=== PATIENT | male | born 1995 | race Two or more races ===

== ENCOUNTER 2020-11-25 16:37 | Emergency (ER) | payer OTHER ==
[~2020-11-25] VITALS: Ht 165.1 cm; Wt 72.7 kg
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
[2020-11-25 19:30] VITALS: BP 136/80
== END 2020-11-25 19:40 | disposition home or self-care (01) ==
LOC: ER 16:37
DX: S80.01XA Contusion of right knee, initial encounter (principal); V43.52XA Car driver injured in collision with other type car in traffic accident, initial encounter; Y93.I9 Activity, other involving external motion; Y92.89 Other specified places as the place of occurrence of the external cause; Y99.8 Other external cause status
CPT/HCPCS: 73562; 73590; 99284